=== PATIENT | female | born 1995 | race African-American/Black ===

== ENCOUNTER 2017-03-25 20:43 | Emergency (ER) | END 2017-03-25 21:35 | disposition home or self-care (01) ==

== ENCOUNTER 2017-05-27 23:40 | Outpatient (CLI) | END 2017-05-28 04:25 | disposition home or self-care (01) ==

== ENCOUNTER 2017-06-29 17:14 | Outpatient (CLI) | END 2017-06-29 21:35 | disposition home or self-care (01) ==

== ENCOUNTER 2017-06-29 21:56 | Emergency (ER) | END 2017-06-29 22:47 | disposition home or self-care (01) ==

== ENCOUNTER 2017-07-07 21:01 | Emergency (ER) | END 2017-07-07 23:09 | disposition home or self-care (01) ==

== ENCOUNTER 2017-07-13 15:13 | Outpatient (CLI) | END 2017-07-13 17:53 | disposition home or self-care (01) ==

== ENCOUNTER 2017-10-08 05:35 | Emergency (ER) | END 2017-10-08 07:00 | disposition home or self-care (01) ==

== ENCOUNTER 2018-01-16 20:41 | Emergency (ER) | END 2018-01-17 00:07 | disposition home or self-care (01) ==